=== PATIENT | female | born 1950 | race Caucasian/White ===

== ENCOUNTER 2018-01-29 08:56 | Outpatient (RCR) | payer MEDICARE ==
[~2018-01-29 08:56] MED LIST: ASPIRIN 325; ASPIRIN EC81 MG PO; ASPIRIN81 M3; BYSTOLIC2.5 MG PO; EFFIENT5 MG PO; LISINOPRIL2.5 MG PO; Z.0.SIMVASTATIN20 MG PO
== END 2018-01-30 ==
LOC: PT 08:56
PROVIDERS: ATTEND Orthopaedic Surgery Adult Reconstructive Orthopaedic Surgery
DX: M17.11 Unilateral primary osteoarthritis, right knee (principal)
CPT/HCPCS: 97010; 97110 ×3; 97139; 97140; 97162; G8978; G8979

== ENCOUNTER → 2018-03-02 | Outpatient (RCR) | payer MEDICARE | LOC: PT 02-02 11:22 | PROVIDERS: ATTEND Orthopaedic Surgery Adult Reconstructive Orthopaedic Surgery | DX: M17.11 Unilateral primary osteoarthritis, right knee (principal); M25.561 Pain in right knee; M25.461 Effusion, right knee; M62.81 Muscle weakness (generalized) | CPT/HCPCS: 97010 ×9; 97110 ×13; 97112; 97139; G0283; G8978; G8979 ==

== ENCOUNTER 2018-03-12 09:48 | Outpatient (RCR) | payer MEDICARE | END 2018-04-01 | LOC: PT 09:48 | PROVIDERS: ATTEND Orthopaedic Surgery Adult Reconstructive Orthopaedic Surgery | DX: Z96.651 Presence of right artificial knee joint (principal); M17.11 Unilateral primary osteoarthritis, right knee; M25.561 Pain in right knee; M25.461 Effusion, right knee; M62.81 Muscle weakness (generalized) | CPT/HCPCS: 97010 ×2; 97110 ×5; G8978; G8979 ×2; G8980 ==